=== PATIENT | female | born 1980 | race Caucasian/White ===

== ENCOUNTER 2020-08-13 08:30 | Emergency (ER) | payer OTHER ==
[2020-08-13] VITALS (8 sets, daily range): BP systolic 100–138; BP diastolic 48–97
[~2020-08-13] VITALS: Ht 175.3 cm; Wt 144.0 kg
[2020-08-13] MEDS ORDERED: IV NORMAL SALINE 1,000ML 1,000 ML IV ONE ×2 (09:00→10:00)
--- NOTE | 2020-08-13 09:14 | PHYS DOC ---
Past History Past Medical History: No Pertinent History Adult General Chief Complaint Chief Complaint: VAGINAL PROBLEM HPI HPI Patient is a 40-year-old female who presents for vaginal bleeding. Patient reports this is an acute on chronic process. Patient was seen at [facility] July 25 for evaluation as she had been having abnormal vaginal bleeding for preceding 1 to 2 weeks which is unusual for her. Patient had thorough work-up, was subsequently prescribed Provera on discharge with close [employer] follow-up. Patient followed up with [facility] in [place], [place] last for evaluation and subsequently started Junal which was prescribed to her the next day. She has no prior pregnancies. She has no history of any vaginal and/or transabdominal ultrasounds. She denies any trauma or other inciting event which could have caused this bleeding. States in the past 24 hours she has been going through more pads than usual, reports soaking through 4 pads in proceeding 2 hours prior to arrival. Reports mild suprapubic tenderness and at times, feels dizzy and lightheaded with ambulation. Review of Systems Review of Systems Fourteen body systems of review of systems have been reviewed. See HPI for pertinent positives and negative responses, other cortés all other systems are negative, non-pertinent or non-contributory Current Medications Current Medications Current Medications Medications (Trade) Dose Ordered Sig/Darian Start Time Stop Time Status Last Admin Dose Admin Sodium Chloride 1,000 ml @ 1,000 mls/hr 1X ONCE 08/13/20 09:00 08/13/20 09:59 Allergies Allergies Allergies Coded Allergies Type Severity Reaction Last Updated Verified No Known Drug Allergies 08/13/20 No Physical Exam Physical Exam Constitutional: Well developed, well nourished, obese,, non-toxic appearance. HENT: Normocephalic, atraumatic, bilateral external ears normal, oropharynx moist, no oral exudates, nose normal. Eyes: PERRLA, EOMI, conjunctiva normal, no discharge. Neck: Normal range of motion, no tenderness, supple, no stridor. Cardiovascular: Heart rate tachycardic, sinus rhythm, no murmurs rubs or gallops Lungs & Thorax: Bilateral breath sounds clear to auscultation Abdomen: Bowel sounds normal, soft, mild suprapubic tenderness to palpation, no masses, no pulsatile masses. Nonsurgical abdomen, no peritoneal signs : Approximately 8 ounces worth of clot and bright red blood expelled from vaginal vault. No abnormalities to external genitalia. Vaginal perez intact without any signs of irritation. Cervix identified and closed, continued mild bleeding observed from cervix. Skin: Warm, dry, no erythema, no rash. Back: No tenderness, no CVA tenderness. Extremities: No tenderness, no cyanosis, no clubbing, ROM intact, no edema. Neurologic: Alert and oriented X 3, grossly normal motor & sensory function, no focal deficits noted. Psychologic: Affect normal, judgement normal, anxious mood Current Patient Data Vital Signs Vital Signs Date Time Temp Pulse Resp B/P (MAP) Pulse Ox O2 Delivery O2 Flow Rate FiO2 08/13/20 08:45 97.3 150 20 169/89 (115) 96 Room Air Lab Results Laboratory Tests Test 08/13/20 09:02 08/13/20 12:25 White Blood Count 13.2 x10^3/uL (4.0-11.0) 16.7 x10^3/uL (4.0-11.0) Red Blood Count 3.71 x10^6/uL (3.50-5.40) 3.14 x10^6/uL (3.50-5.40) Hemoglobin 10.8 g/dL (12.0-15.5) 9.2 g/dL (12.0-15.5) Hematocrit 33.2 % (36.0-47.0) 29.0 % (36.0-47.0) Mean Corpuscular Volume 90 fL (79-100) 93 fL (79-100) Mean Corpuscular Hemoglobin 29 pg (25-35) 29 pg (25-35) Mean Corpuscular Hemoglobin Concent 32 g/dL (31-37) 32 g/dL (31-37) Red Cell Distribution Width 14.0 % (11.5-14.5) 14.3 % (11.5-14.5) Platelet Count 403 x10^3/uL (140-400) 315 x10^3/uL (140-400) Neutrophils (%) (Auto) 70 % (31-73) Lymphocytes (%) (Auto) 21 % (24-48) Monocytes (%) (Auto) 7 % (0-9) Eosinophils (%) (Auto) 2 % (0-3) Basophils (%) (Auto) 1 % (0-3) Neutrophils # (Auto) 9.3 x10^3uL (1.8-7.7) Lymphocytes # (Auto) 2.7 x10^3/uL (1.0-4.8) Monocytes # (Auto) 0.9 x10^3/uL (0.0-1.1) Eosinophils # (Auto) 0.2 x10^3/uL (0.0-0.7) Basophils # (Auto) 0.1 x10^3/uL (0.0-0.2) Prothrombin Time 10.1 SEC (9.4-11.4) Prothromb Time International Ratio 1.0 (0.9-1.1) Activated Partial Thromboplast Time 23 SEC (23-33) Maternal Serum HCG Beta Subunit 1 mIU/mL (0-6) Sodium Level 138 mmol/L (136-145) Potassium Level 3.5 mmol/L (3.5-5.1) Chloride Level 105 mmol/L (98-107) Carbon Dioxide Level 21 mmol/L (21-32) Anion Gap 12 (6-14) Blood Urea Nitrogen 17 mg/dL (7-20) Creatinine 1.3 mg/dL (0.6-1.0) Estimated GFR (Cockcroft-Gault) 45.8 Glucose Level 124 mg/dL (70-99) Calcium Level 8.8 mg/dL (8.5-10.1) EKG EKG [] Radiology/Procedures Radiology/Procedures PROCEDURE: US PELVIS W/TV Examination: Ultrasound pelvis HISTORY: History of vaginal bleeding COMPARISON: None available FINDINGS: The uterus measures 12.4 x 8.6 x 6.7 cm . The uterus appears heterogenous. The endometrium measures 1.9 cm in thickness. The right and left ovaries could not be visualized. Examination limited due to patient body habitus. IMPRESSION: 1. Limited examination as ovaries could not be visualized. Electronically signed by: Juvenal Bagley MD (08/13/2020 11:29 AM) [id number] Heart Score Risk Factors: Risk Factors: DM, Current or recent (<one month) smoker, HTN, HLP, family history of CAD, obesity. Risk Scores: Risk Factors: DM, Current or recent (<one month) smoker, HTN, HLP, family history of CAD, obesity. Course & Med Decision Making Course & Med Decision Making Airway patent, breathing unlabored, vitals remarkable for tachycardia Comprehensive history and physical examination performed and concerning for ongoing vaginal bleeding that appears to be from the uterus in origin 2 large-bore IVs placed, a total of 2 L normal saline administered throughout this ER visit with significant improvement in patient's tachycardia Dr. Whitney consulted and case discussed, he recommended I restart Provera 10mg now and perform pelvic ultrasound, both of which were done but did not significantly improve patient's current status After comprehensive history, physical exam and ER intervention, patient's condition not satisfactorily improved enough for safe discharge home. I discussed need for admission with hospitalist [facility], Dr. Donis, who accepted admission under his care I discussed plan of care with patient who is amenable to transport. Repeat CBC obtained with decline in hemoglobin. Even though patient's hemoglobin is not <7, she continues to actively bleed. I am concerned for patient's potentially lengthy stay in ER prior to transport due to over saturated healthcare system given current pandemic. 1u PRBC administered Dragon Disclaimer Dragon Disclaimer This electronic medical record was generated, in whole or in part, using a voice recognition dictation system. Departure Departure: Impression: Primary Impression: Vaginal bleeding Disposition: 02 DC/TRF OTHER SHORT TERM HOS ([facility]) Admitting Physician: Devin Donis Referrals: NAME,ISAIAH HERNANDEZ (PCP) SHAINA MARTINEZ DO Aug 13, 2020 09:14
[2020-08-13 09:34] LABS: BASO # 0.1 x10^3/uL (0.0-0.2); BASO % 1 % (0-3); EOS # 0.2 x10^3/uL (0.0-0.7); EOS % 2 % (0-3); HEMATOCRIT 33.2 % (36.0-47.0); HEMOGLOBIN 10.8 g/dL (12.0-15.5); LYMPH # 2.7 x10^3/uL (1.0-4.8); LYMPH % 21 % (24-48); MEAN CORPUSCULAR HEMOGLOBIN 29 pg (25-35); MEAN CORPUSCULAR HGB CONC 32 g/dL (31-37); MEAN CORPUSCULAR VOLUME 90 fL (79-100); MONO # 0.9 x10^3/uL (0.0-1.1); MONO % 7 % (0-9); NEUT # 9.3 x10^3uL (1.8-7.7); NEUT % 70 % (31-73); PLATELET COUNT 403 x10^3/uL (140-400); RED BLOOD COUNT 3.71 x10^6/uL (3.50-5.40); WHITE BLOOD COUNT 13.2 x10^3/uL (4.0-11.0)
[2020-08-13] MEDS ORDERED: IV NORMAL SALINE 250ML 250 ML ONE (09:38)
[2020-08-13] MEDS ORDERED: TRANEXAMIC ACID 1,000 MG/10 ML VIAL. ONE (09:38)
[2020-08-13 09:42] LABS: CALCIUM 8.8 mg/dL (8.5-10.1); CREATININE 1.3 mg/dL (0.6-1.0); GFR 45.8; POTASSIUM 3.5 mmol/L (3.5-5.1)
--- NOTE | 2020-08-13 11:33 | RAD ---
Examination: Ultrasound pelvis HISTORY: History of vaginal bleeding COMPARISON: None available FINDINGS: The uterus measures 12.4 x 8.6 x 6.7 cm . The uterus appears heterogenous. The endometrium measures 1.9 cm in thickness. The right and left ovaries could not be visualized. Examination limited due to patient body habitus. IMPRESSION: 1. Limited examination as ovaries could not be visualized. Electronically signed by: Juvenal Bagley MD (08/13/2020 11:29 AM) [id number]
[2020-08-13] MEDS ORDERED: ONDANSETRON PF 4 MG/2 ML VIAL. ONE (11:40)
[2020-08-13] MEDS ORDERED: ONDANSETRON PF 4 MG/2 ML VIAL. IVP ONE ×2 (12:00→12:15)
[2020-08-13 12:37] LABS: HEMOGLOBIN 9.2 g/dL (12.0-15.5); RED BLOOD COUNT 3.14 x10^6/uL (3.50-5.40); RED CELL DISTRIBUTION WIDTH 14.3 % (11.5-14.5); WHITE BLOOD COUNT 16.7 x10^3/uL (4.0-11.0)
== END 2020-08-13 17:09 | disposition short-term general hospital (02) ==
LOC: ER 08:30 → MERGE 08:30 → ER 17:09
DX: N93.8 Other specified abnormal uterine and vaginal bleeding (principal); R42 Dizziness and giddiness
CPT/HCPCS: 36415; 36430; 76830; 76856; 80048; 84702; 85025; 85027; 85610; 85730; 86850; 86900; 86901; 86920; 96361; 96374; 96376; 99285; J2405; J7030; P9016